=== PATIENT | female | born 1990 | race African-American/Black ===

== ENCOUNTER 2017-04-14 08:22 | Emergency (ER) | payer SELFPAY ==
[2017-04-14 08:27] VITALS: BP 111/74; BMI 49.8
--- NOTE | 2017-04-14 08:49 | DR.CP ---
HPI - Time Seen Time seen: 08:40 - PCP Primary Care Physician: Selam TILLMAN NAMED ACCOUNT EXECUTIVE - Complaint Chief Complaint Doctor Comments: I agree with statement. Patient has a history of allergic rhinitis and is out of med. She has no history of cardiac disease. Chief Complaint:: PT. C/O SHARP CHEST PAIN WHICH WORSENS ON INSPIRATION. PAIN BEGAN LAST NIGHT. PT. STATES SHE HAS ASTHMA BUT IS OUT OF HER INHALERS. ALSO C/ O NON-PRODUCTIVE COUGH. 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 - Family History History of Family Medical Conditions: Yes Family Medical History: Hypertension - Social History Does patient currently use any type of tobacco product: No Have you used tobacco products in the last 12 months: No Type of Tobacco Use: None Does any household member use tobacco: No Alcohol Use: None Do you use any recreational Drugs:: No Lives With: Family Lives Where: Home - infectious screening In the last 2 months have you had wt loss of >10#?: NO Have you had fever, night sweats or hemotysis?: No Have you traveled outside the country in the last 6 months?: No Isolation: Standard ROS - Review of Systems Eyes: No Symptoms Reported ENTM: No Symptoms Reported Respiratoy: Non-Productive Cough, Wheezing Cardiovascular: No Symptoms Reported Gastrointestinal/Abdominal: No Symptoms Reported Genitourinary: No Symptoms Reported Neurological: No Symptoms Reported Musculoskeletal: No Symptoms Reported Integumentary: No Symptoms Reported Hematologic/Lymphatic: No Symptoms Reported Endocrine: No Symptoms Reported Psychiatric: No Symptoms Reported All Other Systems: Reviewed and Negative PE - Vitals Vitals: Temperature 98.4 F Pulse Rate 76 Respiratory Rate 17 Blood Pressure 111/74 O2 Sat by Pulse Oximetry 97 - General Limitations: No Limitations General Appearance: Alert, In No Apparent Distress - Head Head Exam: Normal Inspection, Atraumatic - Eyes Eye exam: Normal Appearance, PERRL, EOMI - ENT ENT Exam: TM's Normal Bilaterally - Chest Chest Inspection: Normal Inspection - Respiratory Respiratory Exam: Normal Lung Sounds Bilat Respiratory Exam: Bilateral Clear to Auscultation - Cardiovascular Cardiovascular Exam: Regular Rate, Normal Rhythm Pulse: Normal, Radial Edema: Normal - Abdominal Exam Abdominal Exam: Normal Inspection Abdominal Tenderness: negative: RUQ, RLQ, LUQ, LLQ, Epigastrium, Suprapubic, Diffuse, Mild, Moderate, Severe, Other - Extremities Extremities Exam: Normal Inspection, Full ROM - Back Back Exam: Normal Inspection - Neurologic Neurological Exam: Alert, Oriented X3, CN II-XII Intact - Psychiatric Psychiatric Exam: Normal Affect, Normal Mood - Skin Skin Exam: Warm, Dry, Intact Course - Reevaluation 1st: Unchanged ROR - XRAY XRAY Interpreted by: Radiologist (Chest: No acute disease) - Diagnosis Discharge Problem: Allergic rhinitis Qualifiers: Chronicity: acute Allergic rhinitis trigger: unspecified Allergic rhinitis seasonality: non-seasonal Qualified Code(s): J30.89 - Other allergic rhinitis - Discharge Plan Condition: Stable - Follow ups/Referrals Follow ups/Referrals: CHENCHO TILLMAN [Primary Care Provider] - 3 days - Instructions
--- NOTE | 2017-04-14 09:18 | RAD ---
Examination: Chest x-ray. Clinical History: Cough, wheezing. Technique: PA and lateral views of the chest were obtained. Comparison: 03/20/2016. Findings: The cardiac and mediastinal contours are within normal limits. No pneumothorax or pleural effusion is noted. The lungs appear clear. There is a minor thoracic scoliosis seen convex to the right, which may be positional in nature. No acute osseous abnormality is noted. Impression: 1. No acute disease. Reported By:
== END 2017-04-14 09:30 | disposition home or self-care (01) ==
LOC: ER 08:34
DX: J30.89 Other allergic rhinitis (principal)
CPT/HCPCS: 71020; 99282; 99283

== ENCOUNTER 2017-06-16 09:29 | Emergency (ER) | payer BC ==
[2017-06-16 10:01] VITALS: BP 115/92; BMI 49.8
--- NOTE | 2017-06-16 10:37 | DR.FBACK ---
HPI - HPI Comment HPI Comment: RT LOWER BACK PAIN TIMES ONE DAY. WORSE TODAY. DENUIES FEVER, DYSURIA OR TRAUMA. - Severity Severity: Moderate - Quality Quality: Sharp - Context Onset: Spontaneous Circumstance: Spontaneous History of: None - Modifying Factors Worsened By: Movement (BENDING.) - Associated Signs and Symptoms Back Pain Symptoms: None Numbness: None Weakness: None <ANNI ARTEAGA - Last Filed: 06/18/17 08:50> - Time Seen Time seen: 10:35 - PCP Primary Care Physician: ROBERTO TILLMAN - HPI Comment HPI Comment: RIGHT LOWER BACK PAIN - Complaint Chief Complaint Doctor Comments: LOWER BACK PAIN. Chief Complaint:: BACK PAIN IN LOWER AREA. 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 - Family History History of Family Medical Conditions: Yes Family Medical History: Hypertension - Social History Alcohol Use: None Do you use any recreational Drugs:: No Lives With: Family Lives Where: Home - infectious screening In the last 2 months have you had wt loss of >10#?: NO Have you had fever, night sweats or hemotysis?: No Have you traveled outside the country in the last 6 months?: No Isolation: Standard <ELLIOT CHAVEZ - Last Filed: 06/19/17 11:40> ROS - Review of Systems Constitutional: No Symptoms Reported Eyes: No Symptoms Reported ENTM: No Symptoms Reported Respiratoy: No Symptoms Reported Cardiovascular: No Symptoms Reported Gastrointestinal/Abdominal: No Symptoms Reported Genitourinary: No Symptoms Reported Neurological: No Symptoms Reported Musculoskeletal: Back Pain, Back Integumentary: No Symptoms Reported Hematologic/Lymphatic: No Symptoms Reported Endocrine: No Symptoms Reported All Other Systems: Reviewed and Negative <ANNI ARTEAGA - Last Filed: 06/18/17 08:50> PE - General Limitations: No Limitations General Appearance: Alert - Eyes Eye exam: Normal Appearance - ENT ENT Exam: Normal External Ear Exam - Chest Chest Inspection: Symmetric Chest Wall Rise - Respiratory Respiratory Exam: Normal Lung Sounds Bilat Respiratory Exam: Bilateral Clear to Auscultation - Cardiovascular Cardiovascular Exam: Regular Rate, Normal Rhythm, Normal Heart Sounds - Abdominal Exam Abdominal Exam: Normal Bowel Sounds, Soft. negative: Tenderness - Genitourinary External Exam: Female: Normal External Exam : Speculum Exam (Female): Normal Speculum Exam : Bimanual Exam (female): Normal Bimanual exam - Extremities Extremities Exam: Normal Inspection - Back Back Exam: (R) CVA Tenderness, Paraspinal Tenderness - Neurological Neurological Exam: Alert, Oriented X3 - Psychiatric Psychiatric Exam: Normal Affect, Normal Mood - Skin Skin Exam: Normal Color <ANNI ARTEAGA - Last Filed: 06/18/17 08:50> - Vitals Vital Signs: Temp Pulse Resp BP Pulse Ox 06/16/17 09:56 98.4 F 77 14 115/92 100 04/14/17 08:22 111/74 MDM - Differential Diagnosis Differential Diagnosis: DJD, Fracture, Musculoskeletal Pain, Strain <ANNI ARTEAGA - Last Filed: 06/18/17 08:50> Course - Treatment Treatment: SEE ORDERS. PATIENT TOOK MED BEFORE COMING. DO NOT WISH PO OR IM MED NOW. - Education/Counseling Education/Counseling: Patient, Education Educated On: Diagnosis, Needs for Follow Up <ANNI ARTEAGA - Last Filed: 06/18/17 08:50> ROR - XRAY XRAY Interpreted by: Radiologist XRAY Findings: REPORT DISCUSS WITHPATIENT <ELLIOT CHAVEZ - Last Filed: 06/19/17 11:40> - Labs Reviewed Laboratory: Specimen Type Clean catch urine 06/16/17 11:44 Urine Color Yellow (YELLOW) 06/16/17 11:44 Urine Appearance Clear (CLEAR) 06/16/17 11:44 Urine pH 6.0 (5.0 - 8.0) 06/16/17 11:44 Ur Specific [place] 1.015 (1.000-1.030) 06/16/17 11:44 Urine Protein Negative (NEGATIVE) 06/16/17 11:44 Urine Glucose (UA) Negative (NEGATIVE) 06/16/17 11:44 Urine Ketones Negative (NEGATIVE) 06/16/17 11:44 Urine Occult Blood 1+ (NEGATIVE) 06/16/17 11:44 Urine Nitrite Negative (NEGATIVE) 06/16/17 11:44 Urine Bilirubin Negative (NEGATIVE) 06/16/17 11:44 Urine Urobilinogen Normal (NORMAL) 06/16/17 11:44 Ur Leukocyte Esterase Negative (NEGATIVE) 06/16/17 11:44 Urine RBC Rare /HPF (NEGATIVE) 06/16/17 11:44 Urine WBC Rare /HPF (NEGATIVE) 06/16/17 11:44 Ur Squamous Epith Cells Many /HPF (NEGATIVE) 06/16/17 11:44 Ur Renal Epithelial Cell Rare /HPF (NEGATIVE) 06/16/17 11:44 Amorphous Sediment Trace /HPF (NEGATIVE) 06/16/17 11:44 Urine Bacteria Trace /HPF (NEGATIVE) 06/16/17 11:44 Urine Mucus Moderate /HPF (NEGATIVE) 06/16/17 11:44 Ur Culture Indicated? No/not indicated 06/16/17 11:44 <ANNI ARTEAGA - Last Filed: 06/18/17 08:50> <ELLIOT CHAVEZ - Last Filed: 06/19/17 11:40> - Diagnosis Discharge Problem: Low back strain Qualifiers: Encounter type: initial encounter Qualified Code(s): S39.012A - Strain of muscle, fascia and tendon of lower back, initial encounter Low back pain Qualifiers: Chronicity: acute Back pain laterality: right Sciatica presence: without sciatica Qualified Code(s): M54.5 - Low back pain - Discharge Plan Disposition: 01 HOME, SELF-CARE Condition: Stable Prescriptions: Cyclobenzaprine HCl [FLEXERIL 10 MG *] 10 mg PO TID PRN #20 tab PRN Reason: Ibuprofen [MOTRIN TAB 600 MG *] 600 mg PO TID PRN 20 Days #90 tab PRN Reason: Pain/Inflammation - Follow ups/Referrals Follow ups/Referrals: [facility],None [Primary Care Provider] - 3 days ANTONIO PIÑA [STAFF PHYSICIAN] - 3 days - Instructions Instructions: Musculoskeletal Pain, Back Pain, Adult, [id number] Additional Instructions: RETURN TO ED IF WORSE.
--- NOTE | 2017-06-16 11:32 | RAD ---
HISTORY: Low back pain Study: Lumbar spine complete Comparison: None Findings: Normal alignment of the lumbar spine is maintained. The posterior elements appear unremarkable in th eir appearance. The disk space height is maintained without significant endplate sclerosis. No evid ence for acute fracture can be identified. IMPRESSION: 1. Negative exam. Reported By:
[2017-06-16 11:59] LABS: BILIRUBIN,URINE NEGATIVE (NEGATIVE); BLOOD/HEMOGLOBIN,URINE 1+ (NEGATIVE); GLUCOSE, URINE NEGATIVE (NEGATIVE); KETONES,URINE NEGATIVE (NEGATIVE); LEUKOCYTE ESTERASE ,URINE NEGATIVE (NEGATIVE); NITRITES,URINE NEGATIVE (NEGATIVE); PROTEIN,URINE NEGATIVE (NEGATIVE); UROBILINOGEN,URINE NORMAL (NORMAL)
[2017-06-16 12:00] LABS: APPEARANCE,URINE CLEAR (CLEAR); COLOR,URINE YELLOW (YELLOW)
[2017-06-16 12:13] LABS: AMORPHOUS SEDIMENT,UR TRACE /HPF (NEGATIVE); BACTERIA,URINE TRACE /HPF (NEGATIVE); MUCUS,URINE MODERATE /HPF (NEGATIVE); RBC,URINE RARE /HPF (NEGATIVE); RENAL EPITHELIAL CELLS,URINE RARE /HPF (NEGATIVE); SQUAMOUS EPITHELIAL CELL,UR MANY /HPF (NEGATIVE)
== END 2017-06-16 11:48 | disposition home or self-care (01) ==
LOC: ER 10:05
DX: S39.012A Strain of muscle, fascia and tendon of lower back, initial encounter (principal); M54.5 Low back pain; Y33.XXXA Other specified events, undetermined intent, initial encounter
CPT/HCPCS: 72110; 81001; 99282